=== PATIENT | male | born 1965 | race Caucasian/White ===

== ENCOUNTER 2016-10-18 09:03 | Inpatient (IN) | payer MEDICAID, OTHER ==
[~2016-10-18] VITALS: Ht 172.7 cm; Wt 99.8 kg
[~2016-10-18 09:03] MED LIST: CEPH-568 PO; HYDR-1348 PO
[2016-10-18] MEDS ORDERED: MAGNESIUM/ALUMINUM HYDROXIDE/SIMETHICONE 30ML UDC PO STA (09:40)
[2016-10-18] MEDS ORDERED: VISCOUS LIDOCAINE 2% 15 ML UDC PO STA (09:40)
[2016-10-18 09:57] LABS: HEMATOCRIT. 42.5 % (42.0-52.0); HEMOGLOBIN. 15.1 g/dL (14.0-18.0); MEAN CORPUSCULAR HEMOGLOBIN 30.7 pg (28.0-32.0); MEAN CORPUSCULAR VOLUME 86.5 fL (80.0-94.0); MEAN PLATELET VOLUME 7.7 fl (7.4-10.4); PLATELET 106 x1000/uL (130-400); RED BLOOD CELL COUNT 4.91 mill/uL (4.7-6.1); RED CELL DISTRIBUTION WIDTH 12.8 % (11.6-14.6)
[2016-10-18] MEDS ORDERED: ONDANSETRON HCL 4MG/2ML VIAL IV STA (10:02)
[2016-10-18] MEDS ORDERED: MORPHINE SULFATE 4 MG/ML CPJ (NOT FOR IM USE) IV STA (10:02)
[2016-10-18 10:13] LABS: CARBON DIOXIDE 26 mEq/L (21-32); CHLORIDE 102 mEq/L (98-107)
[2016-10-18] MEDS ORDERED: SODIUM CHLORIDE 0.9% 10ML VIAL ONE (10:19)
[2016-10-18] MEDS ORDERED: IOHEXOL-300 100 ML BOTTLE ONE (10:19)
[2016-10-18 10:48] LABS: PLATELET ESTIMATE SLIGHTLY DECREASED
[2016-10-18] MEDS ORDERED: SODIUM CHLORIDE 0.9% 1,000 ML IV ONE (12:41)
[2016-10-18] MEDS ORDERED: PIPERACILLIN/TAZ 3.375G PREMIX 50 ML IV ONE (12:45)
[2016-10-18] MEDS ORDERED: PIPERACILLIN/TAZOBACTAM 3.375GM/50ML PREMIX IV ONE (12:45)
[2016-10-18] MEDS ORDERED: BUPIVACAINE HCL 0.5% (5MG/ML) 50ML ONE (12:51)
[2016-10-18] MEDS ORDERED: SODIUM CHLORIDE 0.9% 1,000 ML IV SCH ×2 (13:10→17:30)
[2016-10-18] MEDS ORDERED: ONDANSETRON HCL 4MG/2ML VIAL IV PRN ×6 (13:15→17:10)
[2016-10-18] MEDS ORDERED: MORPHINE SULFATE 2 MG/ML CPJ (NOT FOR IM USE) IV PRN ×3 (13:15→14:00)
[2016-10-18] MEDS ORDERED: IPRATROPIUM/ALBUTEROL 0.5-3(2.5)MG/3ML NEB INH PRN ×2 (13:15→13:30)
[2016-10-18] MEDS ORDERED: PIPERACILLIN/TAZ 3.375G PREMIX 50 ML IV SCH (13:15)
[2016-10-18] MEDS ORDERED: SKIN ADHESIVE 0.7 GM EA TOP ONE (13:20)
[2016-10-18 13:27] LABS: INR 1.4
[2016-10-18] MEDS ORDERED: DEXT 5%/0.45% NACL KCL 20MEQ/L 1,000 ML IV SCH ×2 (13:50→20:00)
[2016-10-18] MEDS ORDERED: PROPOFOL 200MG/20ML VIAL IV ONE (13:59)
[2016-10-18] MEDS ORDERED: ROCURONIUM BROMIDE 10MG/ML VIAL 5ML IV ONE (13:59)
[2016-10-18] MEDS ORDERED: DEXAMETHASONE 4MG/ML 1ML VIAL ONE (13:59)
[2016-10-18] MEDS ORDERED: ACETAMINOPHEN 650MG SUPP PR PRN ×2 (14:00→14:15)
[2016-10-18] MEDS ORDERED: METRONIDAZOLE 500 MG PREMIX 100 ML IV SCH (14:00)
[2016-10-18] MEDS ORDERED: EPHEDRINE SULFATE 50MG/ML VIAL ONE (14:07)
[2016-10-18] MEDS ORDERED: LABETALOL HCL 20MG/4ML CARPUJECT IV PRN ×2 (14:15→14:30)
[2016-10-18] MEDS ORDERED: MEPERIDINE HCL/PF 25MG/ML CPJ IV PRN ×2 (14:15→14:30)
[2016-10-18] MEDS ORDERED: PIPERACILLIN/TAZ 3.375G PREMIX 50 ML IV NR (14:15)
[2016-10-18] MEDS ORDERED: HYDROMORPHONE HCL/PF 2MG/ML CPJ IV PRN ×2 (14:15→14:30)
[2016-10-18] MEDS ORDERED: GLYCOPYRROLATE 0.2 MG/ML 2ML VIAL ONE ×2 (14:25→14:34)
[2016-10-18] MEDS ORDERED: NEOSTIGMINE METHYLSULFATE 1MG/ML 10 ML VIAL ONE (14:25)
[2016-10-18] MEDS: MORPHINE SULFATE 4 MG/ML CPJ (NOT FOR IM USE) IV PRN ×2 (18:16→22:31)
[2016-10-18 18:47] LABS: HEMOGLOBIN. 14.2 g/dL (14.0-18.0); MEAN CORPUSCULAR HEMOGLOBIN 30.6 pg (28.0-32.0); MEAN CORPUSCULAR VOLUME 86.5 fL (80.0-94.0); MEAN PLATELET VOLUME 7.7 fl (7.4-10.4); PLATELET 93 x1000/uL (130-400); RED BLOOD CELL COUNT 4.63 mill/uL (4.7-6.1)
[2016-10-18 18:53] LABS: CLARITY URINE CLEAR (CLEAR); COLOR URINE DARK YELLOW (YELLOW); KETONES URINE NEGATIVE (NEGATIVE); LEUKOCYTE ESTERASE URINE NEGATIVE (NEGATIVE); NITRITE URINE NEGATIVE (NEGATIVE); OCCULT BLOOD URINE NEGATIVE (NEGATIVE); PH URINE 5.5 (4.5-8.0); PROTEIN URINE 1+ (NEGATIVE); SPECIFIC GRAVITY URINE 1.034 (1.005-1.030)
[2016-10-18 19:06] LABS: CREATINE KINASE 41 IU/L (39-308); CREATINE KINASE MB FRACTION < 0.5 ng/mL (0.5-3.6); TROPONIN I < 0.02 ng/mL (0.00-0.04)
[2016-10-18 19:12] LABS: *AMPHETAMINES SCREEN URINE NEGATIVE (NEGATIVE); *BARBITURATES SCREEN URINE NEGATIVE (NEGATIVE); *BENZODIAZEPINES SCREEN URINE NEGATIVE (NEGATIVE); *COCAINE SCREEN URINE NEGATIVE (NEGATIVE); CANNABINOID URINE SCREEN NEGATIVE (NEGATIVE); METHADONE URINE SCREEN NEGATIVE (NEGATIVE); OPIATES URINE SCREEN PRESUMTIVE POSITIVE (NEGATIVE); PHENCYCLIDINE URINE SCREEN NEGATIVE (NEGATIVE)
[2016-10-18 20:00] LABS: PLATELET ESTIMATE DECREASED
[2016-10-18] MEDS ORDERED: FAMOTIDINE 20MG/2ML VIAL IV SCH (21:00)
[2016-10-18] MEDS: FAMOTIDINE 20MG/2ML VIAL IV SCH (21:00)
[2016-10-18] MEDS: METRONIDAZOLE 500 MG PREMIX 100 ML IV SCH (21:12)
[2016-10-18] MEDS: PIPERACILLIN/TAZ 3.375G PREMIX 50 ML IV SCH (21:13)
[2016-10-19] MEDS: MORPHINE SULFATE 4 MG/ML CPJ (NOT FOR IM USE) IV PRN ×4 (04:56→20:39)
[2016-10-19] MEDS: DEXT 5%/0.45% NACL KCL 20MEQ/L 1,000 ML IV SCH ×2 (05:49→15:40)
[2016-10-19] MEDS: METRONIDAZOLE 500 MG PREMIX 100 ML IV SCH ×2 (05:50→15:40)
[2016-10-19] MEDS: PIPERACILLIN/TAZ 3.375G PREMIX 50 ML IV SCH ×3 (05:50→22:05)
[2016-10-19] MEDS ORDERED: DEXT 5%/0.45% NACL KCL 20MEQ/L 1,000 ML IV SCH (06:00)
[2016-10-19] MEDS: FAMOTIDINE 20MG/2ML VIAL IV SCH ×2 (08:08→20:32)
[2016-10-19] MEDS: SIMETHICONE 80MG TABLET CHEW PO PRN (21:51)
[2016-10-20] MEDS: DEXT 5%/0.45% NACL KCL 20MEQ/L 1,000 ML IV SCH ×3 (02:32→21:45)
[2016-10-20] MEDS: SIMETHICONE 80MG TABLET CHEW PO PRN (04:16)
[2016-10-20] MEDS: MORPHINE SULFATE 4 MG/ML CPJ (NOT FOR IM USE) IV PRN ×3 (04:17→22:29)
[2016-10-20] MEDS: PIPERACILLIN/TAZ 3.375G PREMIX 50 ML IV SCH ×3 (05:17→21:45)
[2016-10-20 07:08] LABS: CHLORIDE 107 mEq/L (98-107); HEMATOCRIT. 38.3 % (42.0-52.0); HEMOGLOBIN. 13.3 g/dL (14.0-18.0); MEAN CORPUSCULAR HEMOGLOBIN 30.6 pg (28.0-32.0); MEAN CORPUSCULAR VOLUME 87.8 fL (80.0-94.0); MEAN PLATELET VOLUME 8.3 fl (7.4-10.4); PLATELET 125 x1000/uL (130-400); RED BLOOD CELL COUNT 4.36 mill/uL (4.7-6.1); RED CELL DISTRIBUTION WIDTH 13.1 % (11.6-14.6)
[2016-10-20 07:17] LABS: CARBON DIOXIDE 27 mEq/L (21-32)
[2016-10-20] MEDS: FAMOTIDINE 20MG/2ML VIAL IV SCH ×2 (08:32→20:11)
[2016-10-21] MEDS: PIPERACILLIN/TAZ 3.375G PREMIX 50 ML IV SCH ×2 (06:17→14:00)
[2016-10-21] MEDS: MORPHINE SULFATE 4 MG/ML CPJ (NOT FOR IM USE) IV PRN ×3 (06:32→15:28)
[2016-10-21] MEDS: DEXT 5%/0.45% NACL KCL 20MEQ/L 1,000 ML IV SCH ×2 (06:37→15:00)
[2016-10-21 08:28] LABS: PLATELET ESTIMATE SLIGHTLY DECREASED
[2016-10-21] MEDS: SIMETHICONE 80MG TABLET CHEW PO PRN ×2 (09:33→15:28)
[2016-10-21] MEDS: FAMOTIDINE 20MG/2ML VIAL IV SCH (09:35)
[2016-10-21] MEDS ORDERED: HYDR-523 PO (21:01)
[2016-10-21 21:10] VITALS: BP 141/88
== END 2016-10-21 21:35 | disposition home or self-care (01) | DRG 225 ==
LOC: ER 09:58 → 6EST 13:12 → ER 13:25 → EDBEDREQ 13:44 → ENRESERV 13:49
PROVIDERS: ADMIT Internal Medicine; ATTEND Internal Medicine
PROC: 0DTJ4ZZ Resection of Appendix, Percutaneous Endoscopic Approach (ICD-10-PCS; principal; 2016-10-18 13:00)
DX: K35.2 Acute appendicitis with generalized peritonitis (principal); N17.9 Acute kidney failure, unspecified; E87.6 Hypokalemia
CPT/HCPCS: 36415; 71010; 74177; 80048; 80053; 80305; 81001; 82550; 82553; 83690; 83735; 84484; 85025; 85610; 87040; 87086; 88304; 93005; 96374; 96375; 97161; 97535; 99291; A4216; C1893; J0171; J1100; J2270; J2405; J2543; J2704; J2710; J3490; J7030; J7120; Q9967

== ENCOUNTER 2016-10-23 21:41 | Inpatient (IN) | payer OTHER ==
[~2016-10-23] VITALS: Ht 172.7 cm; Wt 99.8 kg
[2016-10-23] MEDS ORDERED: ONDANSETRON HCL 4MG/2ML VIAL IV STA (23:27)
[2016-10-23] MEDS ORDERED: SODIUM CHLORIDE 0.9% 1,000 ML IV ONE (23:27)
[2016-10-23] MEDS ORDERED: MORPHINE SULFATE 4 MG/ML CPJ (NOT FOR IM USE) IV STA (23:27)
[2016-10-23 23:44] LABS: HEMATOCRIT. 43.2 % (42.0-52.0); HEMOGLOBIN. 15.1 g/dL (14.0-18.0); MEAN CORPUSCULAR HEMOGLOBIN 30.2 pg (28.0-32.0); MEAN CORPUSCULAR VOLUME 86.1 fL (80.0-94.0); PLATELET 183 x1000/uL (130-400); RED BLOOD CELL COUNT 5.01 mill/uL (4.7-6.1); RED CELL DISTRIBUTION WIDTH 13.1 % (11.6-14.6)
[2016-10-23 23:53] LABS: CHLORIDE 106 mEq/L (98-107)
[2016-10-24] VITALS (14 sets, daily range): BP systolic 122–154; BP diastolic 78–113
[2016-10-24 00:03] LABS: CARBON DIOXIDE 23 mEq/L (21-32)
[2016-10-24 00:22] LABS: PLATELET ESTIMATE NORMAL
[2016-10-24] MEDS ORDERED: ONDANSETRON HCL 4MG/2ML VIAL IV ONE (03:00)
[2016-10-24] MEDS ORDERED: MORPHINE SULFATE 4 MG/ML CPJ (NOT FOR IM USE) IV ONE (03:00)
[2016-10-24] MEDS ORDERED: SODIUM CHLORIDE 0.9% 1,000 ML IV ONE (03:26)
[2016-10-24] MEDS ORDERED: METOCLOPRAMIDE HCL 10MG/2ML VIAL IV PRN (05:30)
[2016-10-24] MEDS ORDERED: MORPHINE SULFATE 4 MG/ML CPJ (NOT FOR IM USE) IV PRN (05:30)
[2016-10-24] MEDS ORDERED: CLONIDINE 0.1MG TABLET PO PRN (05:30)
[2016-10-24] MEDS ORDERED: LEVO500T89 PO (07:01)
[2016-10-24] MEDS: PANTOPRAZOLE SODIUM 40 MG/VIAL IV SCH (08:00)
[2016-10-24 08:45] LABS: INR 1.3; PROTHROMBIN TIME 13.4 sec
[2016-10-24] MEDS ORDERED: FENTANYL CITRATE/PF 50MCG/ML 2ML VIAL ONE (09:58)
[2016-10-24] MEDS ORDERED: FENTANYL CITRATE/PF 50MCG/ML 2ML VIAL IV ONE (12:00)
[2016-10-24] MEDS: DEXT 5%/0.45% NACL KCL 20MEQ/L 1,000 ML IV SCH ×2 (13:19→21:26)
[2016-10-24] MEDS ORDERED: IOHEXOL-300 100 ML BOTTLE ONE (13:57)
[2016-10-24] MEDS ORDERED: SODIUM CHLORIDE 0.9% 10ML VIAL ONE (13:57)
[2016-10-24] MEDS: HYDROCODONE/ACETAMINOPHEN 5/325MG TABLET PO PRN ×2 (15:20→21:26)
[2016-10-24] MEDS: ZOLPIDEM TARTRATE 5MG TABLET PO PRN (21:25)
[2016-10-25] VITALS: BP 141/90
[2016-10-25] MEDS: DEXT 5%/0.45% NACL KCL 20MEQ/L 1,000 ML IV SCH ×4 (01:38→20:05)
[2016-10-25] MEDS: HYDROCODONE/ACETAMINOPHEN 5/325MG TABLET PO PRN ×4 (03:42→22:18)
[2016-10-25 04:00] VITALS: BP 116/90
[2016-10-25 08:00] VITALS: BP 132/77
[2016-10-25] MEDS: PANTOPRAZOLE SODIUM 40 MG/VIAL IV SCH (09:12)
[2016-10-25 12:00] VITALS: BP 133/84
[2016-10-25 14:57] LABS: BASOPHILS % 0.2 % (0.0-2.0); EOSINOPHILS % 0.9 % (0.0-5.0); HEMOGLOBIN. 13.2 g/dL (14.0-18.0); LYMPHOCYTES % 9.5 % (20.0-50.0); MEAN CORPUSCULAR HEMOGLOBIN 30.8 pg (28.0-32.0); MEAN CORPUSCULAR VOLUME 86.3 fL (80.0-94.0); MEAN PLATELET VOLUME 8.2 fl (7.4-10.4); MONOCYTES % 6.3 % (2.0-8.0); NEUTROPHILS % 83.1 % (40.0-76.0); PLATELET 166 x1000/uL (130-400); RED BLOOD CELL COUNT 4.29 mill/uL (4.7-6.1); RED CELL DISTRIBUTION WIDTH 13.1 % (11.6-14.6)
[2016-10-25 15:10] LABS: CARBON DIOXIDE 27 mEq/L (21-32); CHLORIDE 110 mEq/L (98-107)
[2016-10-25 16:00] VITALS: BP 120/84
[2016-10-25] MEDS: PIPERACILLIN/TAZ 3.375G PREMIX 50 ML IV SCH (18:29)
[2016-10-25 20:00] VITALS: BP 129/89
[2016-10-25] MEDS: ZOLPIDEM TARTRATE 5MG TABLET PO PRN ×2 (22:15→22:19)
[2016-10-26] VITALS: BP 130/80
[2016-10-26] MEDS: PIPERACILLIN/TAZ 3.375G PREMIX 50 ML IV SCH ×3 (00:06→11:57)
[2016-10-26 04:00] VITALS: BP 126/78
[2016-10-26] MEDS: DEXT 5%/0.45% NACL KCL 20MEQ/L 1,000 ML IV SCH ×2 (05:45→09:19)
[2016-10-26] MEDS: HYDROCODONE/ACETAMINOPHEN 5/325MG TABLET PO PRN (07:10)
[2016-10-26 08:00] VITALS: BP 119/76
[2016-10-26] MEDS ORDERED: FAMOTIDINE 20MG/2ML VIAL IV SCH (09:00)
[2016-10-26 12:47] VITALS: BP 135/87
== END 2016-10-26 14:20 | disposition home health service (06) | DRG 721 ==
LOC: ER 23:41 → 6EST 10-24 03:32 → ENRESERV 10-24 04:24
PROVIDERS: ADMIT Internal Medicine; ATTEND Internal Medicine
PROC: 0W9G30Z Drainage of Peritoneal Cavity with Drainage Device, Percutaneous Approach (ICD-10-PCS; principal; 2016-10-24)
PROC: 0W9G30Z Drainage of Peritoneal Cavity with Drainage Device, Percutaneous Approach (ICD-10-PCS; 2016-10-24)
DX: T81.4XXA Infection following a procedure, initial encounter (principal); K65.1 Peritoneal abscess; K56.60 Unspecified intestinal obstruction; K56.7 Ileus, unspecified; Y83.9 Surgical procedure, unspecified as the cause of abnormal reaction of the patient, or of later complication, without mention of misadventure at the time of the procedure; Z90.49 Acquired absence of other specified parts of digestive tract
CPT/HCPCS: 36415; 49180; 74000; 74177; 77012; 80048; 80053; 85025; 85610; 87070; 87075; 87076; 87077; 87186; 87205; 96361; 96374; 96375; 96376; 99285; A4216; C1729; C1769; C1893; C9113; J2270; J2405; J2543; J3010; J3490; J7030; Q9967

== ENCOUNTER 2016-11-16 05:21 | Emergency (ER) | payer OTHER ==
[~2016-11-16] VITALS: Ht 172.7 cm; Wt 96.0 kg
[~2016-11-16 05:21] MED LIST changes: +LEVO500T89 PO
[2016-11-16 06:54] LABS: BASOPHILS % 0.1 % (0.0-2.0); EOSINOPHILS % 0.8 % (0.0-5.0); HEMATOCRIT. 35.3 % (42.0-52.0); HEMOGLOBIN. 12.4 g/dL (14.0-18.0); MEAN CORPUSCULAR HEMOGLOBIN 29.9 pg (28.0-32.0); MEAN CORPUSCULAR VOLUME 85.1 fL (80.0-94.0); MEAN PLATELET VOLUME 7.3 fl (7.4-10.4); MONOCYTES % 11.1 % (2.0-8.0); PLATELET 106 x1000/uL (130-400); RED BLOOD CELL COUNT 4.14 mill/uL (4.7-6.1); RED CELL DISTRIBUTION WIDTH 13.2 % (11.6-14.6)
[2016-11-16 06:55] LABS: INR 1.2; PROTHROMBIN TIME 12.7 sec
[2016-11-16 07:05] LABS: CARBON DIOXIDE 27 mEq/L (21-32); CHLORIDE 106 mEq/L (98-107)
[2016-11-16 08:41] VITALS: BP 123/85
== END 2016-11-16 09:01 | disposition home or self-care (01) ==
LOC: ER 05:21
DX: R10.31 Right lower quadrant pain (principal); Z90.49 Acquired absence of other specified parts of digestive tract
CPT/HCPCS: 36415; 74176; 80053; 83690; 85025; 85610; 99285; Z7610

== ENCOUNTER 2018-10-27 12:20 | Emergency (ER) | payer OTHER ==
[~2018-10-27] VITALS: Ht 172.7 cm; Wt 100.0 kg
[~2018-10-27 12:20] MED LIST changes: +IBUP-2030 PO; -LEVO500T89 PO; +ZOLP10TA2 PO
[2018-10-27] MEDS ORDERED: INDOMETHACIN 50MG CAPSULE PO ONE (13:45)
[2018-10-27] MEDS ORDERED: INDOMETHACIN 25MG CAPSULE PO NR ×2 (14:15)
[2018-10-27 17:34] VITALS: BP 167/108
== END 2018-10-27 17:37 | disposition home or self-care (01) ==
LOC: ER 12:20
DX: M10.9 Gout, unspecified (principal); Z90.49 Acquired absence of other specified parts of digestive tract; Z79.899 Other long term (current) drug therapy
CPT/HCPCS: 73630; 99283